=== PATIENT | male | born 1960 | race Caucasian/White ===

== ENCOUNTER 2023-01-28 18:20 | Emergency (ER) | payer OTHER ==
[~2023-01-28] VITALS: Ht 175.3 cm; Wt 97.5 kg
[2023-01-28 18:31] VITALS: BP 160/83
--- NOTE | 2023-01-28 19:30 | NUR ---
pt in bed, awake, a/o x 4, ambulatory. on ra, no s/sx of acute respi distress noted at this. will continue to monitor.
--- NOTE | 2023-01-28 20:25 | NUR ---
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
--- NOTE | 2023-01-28 21:10 | NUR ---
Patient discharged to home in stable condition. Written and verbal after care instructions given. Patient verbalizes understanding of instruction.
== END 2023-01-28 21:11 | disposition home or self-care (01) ==
LOC: ER 18:46
DX: S90.01XA Contusion of right ankle, initial encounter (principal); I10 Essential (primary) hypertension; E78.00 Pure hypercholesterolemia, unspecified; V09.9XXA Pedestrian injured in unspecified transport accident, initial encounter; Y93.89 Activity, other specified; Y92.89 Other specified places as the place of occurrence of the external cause; Y99.8 Other external cause status
CPT/HCPCS: 73610-TC